=== PATIENT | female | born 1985 | race Caucasian/White ===

== ENCOUNTER 2021-02-09 07:26 | Day surgery (SDC) | payer OTHER, SELFPAY ==
[~2021-02-09] VITALS: Ht 162.6 cm; Wt 68.9 kg
[2021-02-09] MEDS ORDERED: HYDROcodone/APAP 5/325 MG 1 TAB TAB PO PRN (08:45)
[2021-02-09] MEDS ORDERED: ONDANSETRON 4 MG/2 ML VIAL IVP PRN (08:45)
[2021-02-09] MEDS ORDERED: fentaNYL citrate 0.05 MG/ML VIAL IVP PRN (08:45)
[2021-02-09] MEDS ORDERED: MEPERIDINE 25 MG/ML SYR IVP PRN (08:45)
[2021-02-09] MEDS ORDERED: LACTATED RINGERS 1,000 ML IV SCH (08:45)
[2021-02-09] MEDS ORDERED: diphenhydrAMINE 50 MG/ML VIAL IVP PRN (08:45)
[2021-02-09] MEDS ORDERED: PROPOFOL 200 MG/20 ML VIAL IV ONE (09:00)
[2021-02-09] MEDS ORDERED: ROCURONIUM 50 MG/5 ML VIAL IV ONE (09:00)
[2021-02-09] MEDS ORDERED: DEXAMETHASONE 4 MG/ML VIAL ONE (09:00)
[2021-02-09] MEDS ORDERED: LIDOCAINE 2% 100 MG/5 ML SYR IVP ONE (09:00)
[2021-02-09] MEDS ORDERED: SEVOFLURANE 250 ML BTL INH ONE (09:00)
[2021-02-09] MEDS ORDERED: GLYCOPYRROLATE 0.2 MG/ML VIAL ONE (09:00)
[2021-02-09] MEDS ORDERED: KETOROLAC 30 MG/ML VIAL ONE (09:00)
[2021-02-09] MEDS ORDERED: ONDANSETRON 4 MG/2 ML VIAL ONE (09:00)
[2021-02-09] MEDS ORDERED: NEOSTIGMINE 1:1000 10 MG/10 ML VIAL ONE (09:00)
[2021-02-09] MEDS ORDERED: fentaNYL citrate 0.05 MG/ML VIAL ONE (09:00)
== END 2021-02-09 11:10 | disposition home or self-care (01) ==
LOC: MMU 07:26 → MDS 07:26
PROVIDERS: ATTEND Obstetrics & Gynecology
DX: N92.0 Excessive and frequent menstruation with regular cycle (principal); T83.32XA Displacement of intrauterine contraceptive device, initial encounter; D64.9 Anemia, unspecified; G89.29 Other chronic pain; Y83.8 Other surgical procedures as the cause of abnormal reaction of the patient, or of later complication, without mention of misadventure at the time of the procedure; Z20.828 Contact with and (suspected) exposure to other viral communicable diseases
CPT/HCPCS: 58563; J1100; J1885; J2001; J2405; J2704; J2710; J3010; J3490; J7120; U0003